=== PATIENT | male | born 1955 | race Caucasian/White ===

== ENCOUNTER 2024-06-17 12:37 | Inpatient (IN) | payer BC, OTHER ==
[2024-06-17] MEDS ORDERED: NA CHLORIDE 0.9% 250 ML ONE (13:10)
[2024-06-17] MEDS ORDERED: METOPROLOL TAR 25 MG TAB ONE ×2 (13:10→14:12)
[2024-06-17] MEDS ORDERED: MAGNESIUM SULFATE 1 gm IVPB 1 GM/100 ML BAG IV ONE (13:10)
[2024-06-17 13:38] LABS: Absolute Lymphocytes (CBC) 1.3 K/uL (0.7-4.9); Absolute Monocytes 1.8 K/uL (0.1-1.3); Absolute Neutrophil 8.9 K/uL (1.8-8.0); Basophils % 0.4 % (0-1.3); Eosinophils % 0.3 % (0-4.4); Hematocrit 35.3 % (39.6-49.0); Hemoglobin 12.6 g/dL (13.6-17.9); Lymphocytes % 10.4 % (15.3-44.8); MCH 30.1 pg (27.0-35.0); MCHC 35.6 g/dL (32.0-36.0); MCV 84.6 fL (80-100); MPV 8.3 fL (7.6-11.3); Monocytes % 15.3 % (3.3-12.3); Neutrophils % 73.6 % (41.7-73.7); Nucleated Red Blood Cells % 0.1 % (0-0); Platelets 345 thou/uL (152-406); RBC Red Blood Cell Count 4.17 M/uL (4.33-5.43); Red Cell Distribution Width 12.9 % (12.1-15.2)
--- NOTE | 2024-06-17 13:46 | RAD REPORT ---
EXAM: Chest Single View HISTORY: 69 years Male Dyspnea;Palpitations COMPARISON: None. FINDINGS: LUNGS/PLEURA: The lungs are clear. No pleural effusions or pneumothorax. No pulmonary edema. CARDIAC/MEDIASTINUM: The cardiac silhouette is within normal limits. UPPER ABDOMEN: No significant abnormality. BONES: No acute abnormality. LINES/TUBES/OTHER: N/A IMPRESSION: No evidence of acute cardiopulmonary disease.
[2024-06-17 13:48] LABS: PT Prothrombin Time 13.3 SECONDS (10.0-13.0); PTT, Activated Partial Thromb 26.9 SECONDS (24.3-36.9); Protime INR 1.18
[2024-06-17] MEDS ORDERED: Levofloxacin500mg IV 500 MG/100 ML BAG IV ONE (13:54)
[2024-06-17 14:03] LABS: Albumin 2.7 g/dL (3.4-5.0); Albumin/Globulin Ratio 0.7 (1.1-1.8); Anion Gap 10.6 mEq/L (5.0-15.0); Bilirubin Total 0.8 mg/dL (0.2-1.0); Globulin 4.1 g/dL (2.3-3.5); Potassium 3.6 mEq/L (3.5-5.1); Protein, Total 6.8 g/dL (6.4-8.2); Troponin High Sensitivity 8.2 pg/mL (<58.9)
--- NOTE | 2024-06-17 15:07 | ER ---
Nurse's Notes [facility] Name: Darin Parham Age: 69 yrs Sex: Male : 1955 Arrival Date: 06/17/2024 Time: 12:37 Bed 16 Private MD: Diagnosis: Persistent atrial fibrillation;Pneumonia, unspecified organism Presentation: 06/17 12:46 Chief complaint: Patient states: he has been having cough, congestion, fevers, chills ap3 and loss of apatite, and fatigue for approx a week. patient states he was sent over from next level urgent care due to these symptoms. Coronavirus screen: Client presents with at least one sign or symptom that may indicate coronavirus-19. Ebola Screen: No symptoms or risks identified at this time. Initial Sepsis Screen: Does the patient meet any 2 criteria? No. Patient's initial sepsis screen is negative. Does the patient have a suspected source of infection? No. Patient's initial sepsis screen is negative. Risk Assessment: Do you want to hurt yourself or someone else? Patient reports no desire to harm self or others. Onset of symptoms is unknown. 12:46 Method Of Arrival: Ambulatory ap3 12:46 Acuity: ROMANA 2 ap3 Triage Assessment: 12:49 Cardiovascular: Pulses this nurse palpates irregular pulse in right radius. ap3 13:00 General: Appears ill, Behavior is cooperative, appropriate for age. Pain: Denies pain. ap3 Neuro: Level of Consciousness is awake, alert, obeys commands, Oriented to person, place, time, situation, Appropriate for age. Respiratory: Reports shortness of breath on exertion cough that is Airway is patent Respiratory effort is even, unlabored. Historical: - Allergies: 13:32 PENICILLINS; cm10 - PMHx: 14:00 Hypertensive disorder; cm10 - Immunization history:: Adult Immunizations unknown. - Infectious Disease History:: Denies. - Family history:: not pertinent. - Social history:: Smoking status: unknown. - Hospitalizations: : No recent hospitalization is reported. Screenin:00 [facility] ED Fall Risk Assessment (Adult) History of falling in the last 3 months, cm10 including since admission No falls in past 3 months (0 pts) Confusion or Disorientation No (0 pts) Intoxicated or Sedated No (0 pts) Impaired Gait No (0 pts) Mobility Assist Device Used No (0 pt) Altered Elimination No (0 pt) Score/Fall Risk Level 0 - 2 = Low Risk Oriented to surroundings, Maintained a safe environment, Hourly rounding (assess needs \T\ fall precautionary measures) done. Abuse screen: Denies threats or abuse. Denies injuries from another. Nutritional screening: No deficits noted. Tuberculosis screening: No symptoms or risk factors identified. Assessment: 13:30 Reassessment: Patient appears in no apparent distress at this time. Patient and/or cm10 family updated on plan of care and expected duration. Pain level reassessed. Patient is alert, oriented x 3, equal unlabored respirations, skin warm/dry/pink. 14:30 Reassessment: Patient appears in no apparent distress at this time. Patient and/or cm10 family updated on plan of care and expected duration. Pain level reassessed. Patient is alert, oriented x 3, equal unlabored respirations, skin warm/dry/pink. 15:30 Reassessment: Patient appears in no apparent distress at this time. Patient and/or cm10 family updated on plan of care and expected duration. Pain level reassessed. Patient is alert, oriented x 3, equal unlabored respirations, skin warm/dry/pink. 16:30 Pain: Pain does not radiate. Pain began suddenly. cm10 Vital Signs: 12:46 BP 141 / 91; Pulse 67; Resp 19; Temp 98.3; Pulse Ox 100% ; Weight 117.03 kg; ap3 13:30 BP 120 / 73; Pulse 117; Resp 24; Pulse Ox 97% ; cm10 14:30 BP 102 / 77; Pulse 110; Resp 26; Pulse Ox 96% on R/A; cm10 15:00 BP 121 / 77; Pulse 100; Resp 25; Pulse Ox 97% on R/A; cm10 15:30 BP 117 / 91; Pulse 113; Resp 22; Pulse Ox 95% on R/A; cm10 16:00 BP 105 / 66; Pulse 112; Resp 19; Pulse Ox 96% on R/A; cm10 16:30 BP 101 / 68; Pulse 107; Resp 21; Pulse Ox 95% on R/A; cm10 17:00 BP 103 / 72; Pulse 108; Resp 21; Pulse Ox 95% on R/A; cm10 ED Course: 12:42 Patient arrived in ED. cj3 12:49 Triage completed. ap3 12:51 Federico Clemente MD is Attending Physician. rn 12:56 Loulou Pickard, JUVENTINO is Primary Nurse. cm10 12:59 EKG done, by ED staff, reviewed by Federico Clemente MD. ap3 13:02 Client placed on continuous cardiac and pulse oximetry monitoring. NIBP monitoring ap3 applied. conductor freight on. Pulse ox on. NIBP on. 13:20 Inserted saline lock: 18 gauge in right forearm, using aseptic technique. Blood cm10 collected. Flushed with 10 mL NS. 13:20 Initial lab(s) drawn, by me, sent to lab. First set of blood cultures drawn by me. cm10 13:25 Chest Single View XRAY In Process Unspecified. EDMS 13:30 Patient maintains SpO2 saturation greater than 95% on room air. cm10 13:30 Patient has correct armband on for positive identification. Bed in low position. Call cm10 light in reach. Side rails up X2. Provided Education on: ER process and procedures.. 13:30 Patient placed in an exam room, on a stretcher, on vamp marker, on pulse oximetry. cm10 14:07 Second set of blood cultures drawn by me. Inserted saline lock: 20 gauge in left cm10 forearm, using aseptic technique. Blood collected. Flushed with 10 mL NS. 15:07 Pricilla Felix MD is Hospitalizing Provider. rn 16:30 Patient admitted, IV remains in place. cm10 16:30 No provider procedures requiring assistance completed. cm10 Administered Medications: 13:29 Drug: Magnesium Sulfate IVPB 1 grams IVPB once over 1 hrs Route: IVPB; Infused Over: 1 cm10 hrs; Site: right forearm; 14:30 Follow up: Response: No adverse reaction; IV Status: Completed infusion; IV Intake: cm10 100ml 13:29 Drug: NS 0.9% IV 250 ml IV at bolus once; to be given as a bolus over 30 minutes Route: cm10 IV; Rate: bolus; Site: right forearm; 14:01 Follow up: Response: No adverse reaction; IV Status: Completed infusion; IV Intake: cm10 250ml 13:31 Drug: Metoprolol PO 25 mg PO once Route: PO; cm10 14:01 Follow up: Response: No adverse reaction cm10 14:16 Drug: levofloxacin IVPB 750 mg 150 ml IVPB once over 90 mins Volume: 150 ml; Route: cm10 IVPB; Infused Over: 90 mins; Site: left forearm; 15:16 Follow up: Response: No adverse reaction; IV Status: Completed infusion; IV Intake: cm10 100ml 14:16 Drug: Metoprolol PO 25 mg PO once Route: PO; cm10 14:46 Follow up: Response: No adverse reaction cm10 15:47 Drug: Enoxaparin Sub-Q 1 mg/kg Sub-Q once Route: Sub-Q; Site: abdomen; cm10 16:47 Follow up: Response: No adverse reaction cm10 Medication: 20:21 VIS not applicable for this client. cm10 Intake: 14:01 IV: 250ml; Total: 250ml. cm10 14:30 IV: 100ml; Total: 350ml. cm10 15:16 IV: 100ml; Total: 450ml. cm10 Outcome: 15:07 Decision to Hospitalize by Provider. rn 16:30 Admitted to ER Hold. Please see [facility] for further documentation. cm10 16:30 Condition: good 16:30 Instructed on the need for admit, 06/18 15:17 Patient left the ED. iw Signatures: Dispatcher [employer] Keerthi Tucker RN RN iw Nieto, Roman, MD MD rn Prokisch, Amanda, RN RN ap3 Loulou Pickard RN RN cm10 Johnson, Celeste 3
--- NOTE | 2024-06-17 15:07 | EDPHYS ---
Physician Documentation [facility] Name: Darin Parham Age: 69 yrs Sex: Male : 1955 Arrival Date: 06/17/2024 Time: 12:37 Bed 16 Private MD: ED Physician Federico Clemente HPI: 06/17 13:23 This 69 yrs old Male presents to ER via Ambulatory with complaints of Chest Pain, Flu rn Symptoms. 13:23 The patient or guardian reports cough, flu symptoms. Onset: The symptoms/episode rn began/occurred 1 week(s) ago. Associated signs and symptoms: Pertinent positives: fever, rhinorrhea. The patient has not experienced similar symptoms in the past. Patient reports sick for 1 week with fever, chills, nasal congestion. Reports cough with shortness of breath. Today started to feel palpitations and heart racing so sent here from urgent care. Urgent care obtained x-ray that showed possible bibasilar atypical pneumonia.. Historical: - Allergies: 13:32 PENICILLINS; cm10 - PMHx: 14:00 Hypertensive disorder; cm10 - Immunization history:: Adult Immunizations unknown. - Infectious Disease History:: Denies. - Family history:: not pertinent. - Social history:: Smoking status: unknown. - Hospitalizations: : No recent hospitalization is reported. ROS: 13:23 Constitutional: Positive for fever ENT: Positive for congestion Cardiovascular: rn Positive for heart racing and palpitations Respiratory: Positive for cough and shortness of breath Abdomen/GI: Negative for abdominal pain, nausea, vomiting, diarrhea, and constipation, MS/Extremity: Negative for injury and deformity, Skin: Negative for injury, rash, and discoloration, Neuro: Positive for headache and generalized weakness with malaise Exam: 13:23 Constitutional: This is a well developed, well nourished patient who is awake, alert, rn and in no acute distress. Head/Face: Normocephalic, atraumatic. ENT: Dry mucous membranes Cardiovascular: Tachycardic, irregular Respiratory: Mild tachypnea, diminished breath sounds at bases Abdomen/GI: Soft, non-tender MS/ Extremity: Pulses equal, no cyanosis. Neurovascular intact. Full, normal range of motion. Equal circumference. Neuro: Awake and alert, GCS 15 13:44 ECG was reviewed by the Attending Physician. rn Vital Signs: 12:46 BP 141 / 91; Pulse 67; Resp 19; Temp 98.3; Pulse Ox 100% ; Weight 117.03 kg; ap3 13:30 BP 120 / 73; Pulse 117; Resp 24; Pulse Ox 97% ; cm10 14:30 BP 102 / 77; Pulse 110; Resp 26; Pulse Ox 96% on R/A; cm10 15:00 BP 121 / 77; Pulse 100; Resp 25; Pulse Ox 97% on R/A; cm10 15:30 BP 117 / 91; Pulse 113; Resp 22; Pulse Ox 95% on R/A; cm10 16:00 BP 105 / 66; Pulse 112; Resp 19; Pulse Ox 96% on R/A; cm10 16:30 BP 101 / 68; Pulse 107; Resp 21; Pulse Ox 95% on R/A; cm10 17:00 BP 103 / 72; Pulse 108; Resp 21; Pulse Ox 95% on R/A; cm10 MDM: 12:51 Medical Screening Exam initiated rn 15:06 Differential Diagnosis: Bronchitis Influenza Upper Respiratory Infection Viral Syndrome rn Pneumonia. Data reviewed: vital signs, nurses notes, lab test result(s), EKG, radiologic studies, plain films, and as a result, I will admit patient. Consideration of Admission/Observation Patient was admitted/placed on observation. Escalation of care including admission/observation considered. Counseling: I had a detailed discussion with the patient and/or guardian regarding the historical points, exam findings, and any diagnostic results supporting the discharge/admit diagnosis, lab results, radiology results, the need for further work-up and treatment in the hospital. Response to treatment: the patient's symptoms have mildly improved after treatment, and as a result, I will admit patient. ED course: Chest x-ray images negative for pneumonia per my interpretation. Elevated BNP and new onset A-fib requiring rate control, Lovenox, IV magnesium and admission to the hospital.. 06/17 13:00 Order name: Blood Culture Adult (2) rn 06/17 13:00 Order name: CBC with Diff; Complete Time: 13:43 rn 06/17 13:00 Order name: CMP; Complete Time: 14:08 rn 06/17 13:00 Order name: Lactate w/ 2H reflex if indic.; Complete Time: 14:05 rn 06/17 13:00 Order name: Protime (+inr); Complete Time: 13:58 rn 06/17 13:00 Order name: Ptt, Activated; Complete Time: 13:58 rn 06/17 13:00 Order name: BNP; Complete Time: 14:08 rn 06/17 13:00 Order name: Troponin High Sensitivity; Complete Time: 14:08 rn 06/17 16:31 Order name: Basic Metabolic Panel EDMS 06/17 16:32 Order name: Basic Metabolic Panel EDMS 06/17 16:32 Order name: Basic Metabolic Panel EDMS 06/17 16:32 Order name: Basic Metabolic Panel EDMS 06/17 16:32 Order name: Basic Metabolic Panel EDMS 06/17 16:32 Order name: Basic Metabolic Panel EDMS 06/17 16:32 Order name: Basic Metabolic Panel EDMS 06/17 16:32 Order name: Basic Metabolic Panel EDMS 06/17 16:34 Order name: Cortisol EDMS 06/17 16:34 Order name: Osmolality, Serum EDMS 06/17 16:34 Order name: Osmolality, Urine EDMS 06/17 16:34 Order name: UR SODIUM EDMS 06/17 16:45 Order name: Thyroid Stimulating Hormone EDMS 06/17 16:45 Order name: Urinalysis w/ reflexes EDMS 06/17 16:49 Order name: CBC with Automated Diff EDMS 06/17 16:49 Order name: CBC with Automated Diff EDMS 06/17 16:49 Order name: CBC with Automated Diff EDMS 06/18 05:15 Order name: Osmolality, Serum EDMS 06/18 08:17 Order name: Magnesium EDMS 06/17 13:00 Order name: Chest Single View XRAY; Complete Time: 13:58 rn 06/17 16:45 Order name: Echo with Doppler EDMS 06/17 13:00 Order name: Cardiac monitoring; Complete Time: 13:29 rn 06/17 13:00 Order name: EKG - Nurse/Tech; Complete Time: 13:29 rn 06/17 13:00 Order name: IV Saline Lock - Large Bore; Complete Time: 13:29 rn 06/17 13:00 Order name: Labs collected and sent; Complete Time: 13:29 rn 06/17 13:00 Order name: O2 Per Protocol; Complete Time: 13:29 rn 06/17 13:00 Order name: O2 Sat Monitoring; Complete Time: 13:29 rn 06/17 13:00 Order name: Vital Signs; Complete Time: rn EC: Rate is 119 beats/min. Rhythm is irregularly irregular. QRS interval is normal. No Q rn waves. T waves are Normal. No ST changes noted. Clinical impression: Atrial Fibrillation. Interpreted by me. Reviewed by me. Administered Medications: 13: Drug: Magnesium Sulfate IVPB 1 grams IVPB once over 1 hrs Route: IVPB; Infused Over: 1 cm10 hrs; Site: right forearm; 14:30 Follow up: Response: No adverse reaction; IV Status: Completed infusion; IV Intake: cm10 100ml 13:29 Drug: NS 0.9% IV 250 ml IV at bolus once; to be given as a bolus over 30 minutes Route: cm10 IV; Rate: bolus; Site: right forearm; 14:01 Follow up: Response: No adverse reaction; IV Status: Completed infusion; IV Intake: cm10 250ml 13:31 Drug: Metoprolol PO 25 mg PO once Route: PO; cm10 14:01 Follow up: Response: No adverse reaction cm10 14:16 Drug: levofloxacin IVPB 750 mg 150 ml IVPB once over 90 mins Volume: 150 ml; Route: cm10 IVPB; Infused Over: 90 mins; Site: left forearm; 15:16 Follow up: Response: No adverse reaction; IV Status: Completed infusion; IV Intake: cm10 100ml 14:16 Drug: Metoprolol PO 25 mg PO once Route: PO; cm10 14:46 Follow up: Response: No adverse reaction cm10 15:47 Drug: Enoxaparin Sub-Q 1 mg/kg Sub-Q once Route: Sub-Q; Site: abdomen; cm10 16:47 Follow up: Response: No adverse reaction cm10 Disposition Summary: 06/17/24 15:07 Hospitalization Ordered Notes: Hospitalization Status: Inpatient Admission rn Provider: Pricilla Felix rn Condition: Stable rn Problem: new rn Symptoms: have improved rn Bed/Room Type: Standard rn Location: Telemetry/MedSurg (Inpatient)(06/18/24 13:43) eb Room Assignment: 223(06/18/24 13:43) eb Diagnosis - Persistent atrial fibrillation rn - Pneumonia, unspecified organism rn Forms: - Medication Reconciliation Form rn - SBAR form rn - Leadership Thank You Letter rn research time excluding procedures: 15:06 Critical care time: Bedside Care: 25 minutes, Consultation: 5 minutes, Family rn Intervention: 5 minutes. Total time: 35 minutes Signatures: Dispatcher [employer] EDMS Federico Clemente MD MD rn Botello, Elizabeth eb Villegas, Rebecca rv1 Loulou Pickard RN RN cm10 Corrections: (The following items were deleted from the chart) 13:01 13:00 BLOOD CULTURE*+BA.LAB.BRZ ordered. EDMS EDMS 13:01 13:00 CBC+H.LAB.BRZ ordered. EDMS EDMS 13:01 13:01 COMPREHENSIVE METABOLIC PANEL+C.LAB.BRZ ordered. EDMS EDMS 13:01 13:01 LACTATE+C.LAB.BRZ ordered. EDMS EDMS 13:01 13:01 PROTIME (+INR)+COAG.LAB.BRZ ordered. EDMS EDMS 13:01 13:01 PTT, ACTIVATED+COAG.LAB.BRZ ordered. EDMS EDMS 13:01 13:01 PROBNP+C.LAB.BRZ ordered. EDMS EDMS 13:01 13:01 Troponin High Sensitivity+C.LAB.BRZ ordered. EDMS EDMS 13:01 13:01 Chest Single View+RAD.RAD.BRZ ordered. EDMS EDMS 16:46 16:34 Thyroid Stimulating Hormone ordered. EDMS EDMS 16:49 16:49 Basic Metabolic Panel ordered. EDMS EDMS 16:49 16:49 Basic Metabolic Panel ordered. EDMS EDMS 19:18 15:07 Telemetry/MedSurg (Inpatient) rn [facility] 19:18 15:07 rn 1 06/18 13:43 06/17 19:18 BR ER HOLD [facility] 06/18 13:43 06/17 19:18 ERHOLD- [facility]
[2024-06-17] MEDS ORDERED: ENOXAPARIN 100 MG/ML SYR SQ ONE (15:46)
[2024-06-17] MEDS ORDERED: ACETAMINOPHEN 500 MG TAB PO PRN (16:39)
[2024-06-17] MEDS ORDERED: ZOLPIDEM TARTRATE 5 MG TABLET PO PRN (16:39)
[2024-06-17] MEDS ORDERED: ONDANSETRON 4 MG/2 ML VIAL IV PRN (16:39)
[2024-06-17] MEDS ORDERED: POLYETHYL GLY 3350 17 GM/DOSE PO PRN (16:50)
--- NOTE | 2024-06-17 17:03 | P.HP ---
Certification for Inpatient With expected LOS: >2 Midnights Patient will require the following post-hospital care: None Practitioner: I am a practitioner with admitting privileges, knowledge of patient current condition, hospital course, and medical plan of care. Services: Services provided to patient in accordance with Admission requirements found in Title 42 Section 412.3 of the Code of Federal Regulations Patient History Date of Service: 06/17/24 Reason for admission: Pneumonia, hyponatremia, atrial fibrillation History of Present Illness: 69-year-old patient presented with cough and fever for the last 2 to 3 days, he initially presented to the outside urgent care, as per the report, COVID and flu test were negative, he was found to have pneumonia and also atrial fibrillation so he was transferred here for further evaluation, he was given IV medications, his heart rate is controlled by the time of my visit, he was given a dose of Lovenox and Levaquin in the emergency room. he has constipation 1 week back but that is getting better now, he has chronic knee pain, other than this he denies any other acute complaints. No headache or blackouts. No double vision or blurry vision. No chest pain or shortness of breath. No nausea or vomiting. No abdominal pain. No constipation or diarrhea. No blood in the urine or stool. No lower extremity edema. No recent change in the weight. Review of systems: All other 10 point review of systems are negative other than as mentioned above. Allergies and medications: Reviewed, as per [facility] EMR. Past medical history: Hypertension Past surgical history: Tonsillectomy Social history: No smoking or drugs. Drinks couple of beers every day. Family history: No family history of [place] or CVA Physical examination: Vital signs: Reviewed, as per EMR. General appearance: Alert and comfortable HEENT: Extraocular movements intact, oral mucosa moist. CVS: Normal S1-S2 Lungs: Clear to auscultation bilaterally Abdomen: Soft, bowel sounds present, no tenderness Extremities: No lower extremity edema SOCCER REFEREE: Moves all 4 extremities, no obvious focal deficits, AAO x 3/3 Musculoskeletal: No obvious joint swelling or tenderness Home medications list reviewed: Yes - Past Medical/Surgical History Diabetic: No Physical Examination - Studies Laboratory Data (last 24 hrs) 06/17/24 06/17/24 06/17/24 13:20 13:20 13:20 WBC 12.00 H Hgb 12.6 L Hct 35.3 L Plt Count 345 PT 13.3 H INR 1.18 APTT 26.9 Sodium 119 L* Potassium 3.6 BUN 20 H Creatinine 0.84 Glucose 116 H Total Bilirubin 0.8 AST 38 H ALT 55 Alkaline Phosphatase 83 Assessment and Plan - Problems (Diagnosis) (1) Atrial fibrillation Current Visit: Yes Status: Acute - Plan Assessment and plan: 1. Atrial fibrillation with rapid ventricular rate: His heart rate is already improving, it was in the 70s to 80s at the time of my visit in the emergency room, he takes amlodipine at home for blood pressure, I will start him on long- acting Cardizem for now, monitor heart rate closely on tele monitor, I will check TSH, check echocardiogram, cardiology consult requested. He was given a dose of therapeutic Lovenox in the emergency room, further anticoagulation as per cardiology. 2. Pneumonia: Will treat as community-acquired pneumonia, he is allergic to penicillins, he was given a dose of Levaquin, will continue the same for now. 3. Hyponatremia: I think this is combination of alcohol and HCTZ, he was given a small fluid bolus in the emergency room because of hypotension, monitor sodium closely every 4 hours, hold HCTZ for now. Nephrology consult requested. 4. Hypertension: Stop Norvasc as we are starting Cardizem, stop ARB and HCTZ as well due to hyponatremia, monitor blood pressure closely, will increase Cardizem if needed. 5. Anemia: Probably chronic, monitor closely. DVT Prophylaxis: He was given a full dose of Lovenox in the emergency room, will decide about further anticoagulation tomorrow. Code Status: He would like to be full code. I did discuss all the above mentioned plan with the patient, he understands and agrees with the plan. I discussed with the emergency room staff. I discussed advanced directives with the patient, his [place] is the POA. Discharge Plan: Home Plan to discharge in: 48 Hours - Advance Directives Does patient have a Living Will: No Does patient have a Durable POA for Healthcare: Yes - Code Status/Comfort Care Code Status Assessed: Yes Code Status: Full Code
[2024-06-17] MEDS: DILTIAZEM HCL 180 MG SR CAP PO SCH (19:42)
[2024-06-17 20:03] VITALS: BMI 34.0
[2024-06-17 20:17] LABS: Anion Gap 10.5 mEq/L (5.0-15.0); Potassium 3.5 mEq/L (3.5-5.1)
[2024-06-18 04:42] LABS: Absolute Eosinophils 0.1 K/uL (0-0.5); Absolute Lymphocytes (CBC) 0.8 K/uL (0.7-4.9); Absolute Monocytes 1.5 K/uL (0.1-1.3); Basophils % 0.4 % (0-1.3); Eosinophils % 0.5 % (0-4.4); Hemoglobin 12.3 g/dL (13.6-17.9); MCH 29.9 pg (27.0-35.0); MCHC 35.1 g/dL (32.0-36.0); MCV 85.1 fL (80-100); MPV 8.4 fL (7.6-11.3); Monocytes % 13.3 % (3.3-12.3); Neutrophils % 78.8 % (41.7-73.7); Platelets 369 thou/uL (152-406); RBC Red Blood Cell Count 4.11 M/uL (4.33-5.43); Red Cell Distribution Width 13.1 % (12.1-15.2)
[2024-06-18 04:50] LABS: Anion Gap 9.4 mEq/L (5.0-15.0); Potassium 3.4 mEq/L (3.5-5.1)
[2024-06-18 06:45] LABS: Specific Gravity 1.007 (1.005-1.030); Urine Bilirubin NEGATIVE (Negative); Urine Blood Negative (Negative); Urine Clarity Clear (Clear); Urine Color Light-Yellow (Yellow); Urine Glucose NEGATIVE (Negative); Urine Ketones NEGATIVE (Negative); Urine Microscopic Reflex YN NO UMIC; Urine Nitrite NEGATIVE (Negative); Urine Protein NEGATIVE (Negative); Urine Urobilinogen Normal (Normal)
--- NOTE | 2024-06-18 07:42 | P.CNS ---
Date of Consult: 06/18/24 Reason for Consult: Hyponatremia Requesting Physician: Glenroy Johnson Chief Complaint: Pneumonia, hyponatremia, atrial fibrillation History of Present Illness: 69-year-old patient presented with cough and fever for the last 2 to 3 days, he initially presented to the outside urgent care, as per the report, COVID and flu test were negative, he was found to have pneumonia and also atrial fibrillation so he was transferred here for further evaluation, he was given IV medications, his heart rate is controlled by the time of my visit, he was given a dose of Lovenox and Levaquin in the emergency room. he has constipation 1 week back but that is getting better now, he has chronic knee pain, other than this he denies any other acute complaints. No headache or blackouts. No double vision or blurry vision. No chest pain or shortness of breath. No nausea or vomiting. No abdominal pain. No constipation or diarrhea. No blood in the urine or stool. No lower extremity edema. No recent change in the weight. 13:23 This 69 yrs old Male presents to ER via Ambulatory with complaints of Chest Pain, Flu rn Symptoms. 13:23 The patient or guardian reports cough, flu symptoms. Onset: The symptoms/episode rn began/occurred 1 week(s) ago. Associated signs and symptoms: Pertinent positives: fever, rhinorrhea. The patient has not experienced similar symptoms in the past. Patient reports sick for 1 week with fever, chills, nasal congestion. Reports cough with shortness of breath. Today started to feel palpitations and heart racing so sent here from urgent care. Urgent care obtained x-ray that showed possible bibas ilar atypical pneumonia. Reports 6-8 beers per day but has not been drinking since he started feeling ill 7-10 days ago. He is here on vacation. No difficulty with urination. Allergies Penicillins Allergy (Verified 06/17/24 19:11) Hives/Rash Home medications list reviewed: Yes Home Medications: Amlodipine [Norvasc] 10 mg PO DAILY 06/17/24 Irbesartan/Hydrochlorothiazide [Avalide 150-12.5 mg Tablet] 1 each PO BID 06/17/24 - Past Medical/Surgical History Diabetic: No -: HTN -: Afib Review of Systems 10-point ROS is otherwise unremarkable General: Weakness, Malaise Cardiovascular: Edema Physical Examination Temp Pulse Resp BP Pulse Ox 97.9 F 111 H 20 121/93 H 96 06/18/24 04:00 06/18/24 04:00 06/18/24 04:00 06/18/24 04:00 06/18/24 04:00 General: In no apparent distress, Oriented x3, Cooperative Neck: Supple Respiratory: Clear to auscultation bilaterally Cardiovascular: Edema, Irregular heart rate/rhythm Gastrointestinal: Soft and benign, Non-distended Musculoskeletal: No clubbing, No contractures Integumentary: No rashes Neurological: Normal speech Laboratory Data (last 24 hrs) 06/17/24 06/17/24 06/17/24 16:29 13:20 13:20 WBC Hgb Hct Plt Count PT 13.3 H INR 1.18 APTT 26.9 Sodium Cancelled 119 L* Potassium Cancelled 3.6 BUN Cancelled 20 H Creatinine Cancelled 0.84 Glucose Cancelled 116 H Total Bilirubin 0.8 AST 38 H ALT 55 Alkaline Phosphatase 83 06/17/24 13:20 WBC 12.00 H Hgb 12.6 L Hct 35.3 L Plt Count 345 PT INR APTT Sodium Potassium BUN Creatinine Glucose Total Bilirubin AST ALT Alkaline Phosphatase Imagings Data: EXAM: Chest Single View HISTORY: 69 years Male Dyspnea;Palpitations COMPARISON: None. FINDINGS: LUNGS/PLEURA: The lungs are clear. No pleural effusions or pneumothorax. No pulmonary edema. CARDIAC/MEDIASTINUM: The cardiac silhouette is within normal limits. UPPER ABDOMEN: No significant abnormality. BONES: No acute abnormality. LINES/TUBES/OTHER: N/A IMPRESSION: No evidence of acute cardiopulmonary disease. Conclusions/Impression: Hyponatremia in the setting of HCTZ -Hold HCTZ -Encourage nutrition -Start Bumex -Sodium tablet X1 -BMP q4h Hypokalemia -Replete as ordered HTN -Hold antihypertensives at this time LE Edema -Start Bumex 0.5mg daily Hypoalbuminemia -Encourage nutrition/ protein supplementation Anemia in chronic illness -Monitor H&H Case reviewed with Dr. Johnson Thank you kindly for the consultation
[2024-06-18 08:04] LABS: Anion Gap 9.7 mEq/L (5.0-15.0); Potassium 3.7 mEq/L (3.5-5.1)
[2024-06-18] MEDS ORDERED: levoFLOXacin 750 MG TAB ONE (08:21)
[2024-06-18] MEDS ORDERED: DILTIAZEM HCL 60 MG TAB ONE (08:22)
[2024-06-18] MEDS: levoFLOXacin 750 MG TAB PO SCH (08:31)
[2024-06-18] MEDS: FOLIC ACID 1 MG TABLET PO SCH (09:00)
[2024-06-18] MEDS: BUMETANIDE 1 MG TABLET PO SCH (09:00)
[2024-06-18] MEDS: THIAMINE HCL 100 MG TABLET PO SCH (09:00)
[2024-06-18] MEDS ORDERED: POTASSIUM CL SA 10 MEQ TAB PO ONE (10:19)
[2024-06-18] MEDS ORDERED: THIAMINE HCL 100 MG TABLET ONE (10:19)
[2024-06-18] MEDS ORDERED: FOLIC ACID 1 MG TABLET ONE (10:19)
--- NOTE | 2024-06-18 10:49 | P.PN ---
Subjective Date of Service: 06/18/24 Chief Complaint: Pneumonia, hyponatremia, atrial fibrillation Subjective: No chest pain. shortness of breath improving. No nausea or vomiting. No abdominal pain. No obvious bleeding. Looks comfortable in the bed. Objective: General appearance: Alert and comfortable CVS: Normal S1 and S2 Lungs: Clear to auscultation bilaterally Abdomen: Soft, bowel sounds present, no tenderness Extremities: No pedal edema Physical Examination - Vital Signs Temperature: 98.8 F Blood Pressure: 119/79 Pulse: 142 Respirations: 20 Pulse Ox (%): 96 - Studies Laboratory Data (last 24 hrs) 06/17/24 06/17/24 06/17/24 16:29 13:20 13:20 WBC Hgb Hct Plt Count PT 13.3 H INR 1.18 APTT 26.9 Sodium Cancelled 119 L* Potassium Cancelled 3.6 BUN Cancelled 20 H Creatinine Cancelled 0.84 Glucose Cancelled 116 H Total Bilirubin 0.8 AST 38 H ALT 55 Alkaline Phosphatase 83 06/17/24 13:20 WBC 12.00 H Hgb 12.6 L Hct 35.3 L Plt Count 345 PT INR APTT Sodium Potassium BUN Creatinine Glucose Total Bilirubin AST ALT Alkaline Phosphatase Assessment And Plan - Current Problems (Diagnosis) (1) Atrial fibrillation Current Visit: Yes Status: Acute - Plan Assessment and plan: 1. Atrial fibrillation with rapid ventricular rate: His heart rate still high, increase long-acting Cardizem for now, monitor heart rate closely on tele monitor, TSH normal - f/u echocardiogram -cardiology consult requested. -He was given a dose of therapeutic Lovenox in the emergency room, start eliquis for now, further anticoagulation as per cardiology. 2. Pneumonia: Will treat as community-acquired pneumonia, he is allergic to penicillins - continue Levaquin for now. 3. Hyponatremia: I think this is combination of alcohol and HCTZ - monitor sodium closely every 4 hours -hold HCTZ for now, sodium slowly improving -Nephrology consult requested. -Further management as per nephrology. 4. Hypertension -Continue Cardizem. -DC ARB and HCTZ 5. Anemia: Probably chronic, monitor closely. DVT Prophylaxis: eliquis Code Status: full code. I did discuss all the above mentioned plan with the patient, he understands and agrees with the plan. Probably home in the next 24 to 48 hours depending on the heart rate control and sodium levels. Discharge Plan: Home Plan to discharge in: 24 Hours
[2024-06-18] MEDS: POTASSIUM CL SA 10 MEQ TAB PO ONE ×2 (10:53→21:21)
[2024-06-18 11:59] LABS: Anion Gap 11.8 mEq/L (5.0-15.0); Potassium 3.8 mEq/L (3.5-5.1)
[2024-06-18] MEDS: DILTIAZEM HCL 180 MG SR CAP PO SCH (12:00)
[2024-06-18] MEDS ORDERED: APIXABAN 5 MG TABLET ONE (12:55)
[2024-06-18] MEDS: APIXABAN 5 MG TABLET PO SCH (13:00)
--- NOTE | 2024-06-18 13:01 | ECHO ---
HEIGHT: 6 ft 1 in WEIGHT: 258 lb 0 oz DATE OF STUDY: 06/18/[address]: Glenroy Johnson 2-DIMENSIONAL: YES M.MODE: YES DOPPLER: YES COLOR FLOW: YES TDS: PORTABLE: YES DEFINITY: BUBBLE STUDY: DIAGNOSIS: ATRIAL FIBRILLATION CARDIAC HISTORY: CATHERIZATION: SURGERY: PROSTHETIC VALVE: PACEMAKER: MEASUREMENTS (cm) DIASTOLIC (NORMALS) SYSTOLIC (NORMALS) IVSd 1.0 (0.6-1.2) LA Diam 5.3 (1.9-4.0) LVEF 60-65% LVIDd 5.6 (3.5-5.7) LVIDs 3.7 (2.0-3.5) %FS 34% LVPWd 1.1 (0.6-1.2) Ao Diam 3.1 (2.0-3.7) 2 DIMENSIONAL ASSESSMENT: RIGHT ATRIUM: NORMAL LEFT ATRIUM: MODERATELY DILATED RIGHT VENTRICLE: NORMAL LEFT VENTRICLE: NORMAL TRICUSPID VALVE: TRACE TRICUSPID REGURGITATION MITRAL VALVE: MILD MITRAL REGURGITATION PULMONIC VALVE: NORMAL AORTIC VALVE: NORMAL PERICARDIAL EFFUSION: NONE AORTIC ROOT: NORMAL LEFT VENTRICULAR WALL MOTION: NORMAL DOPPLER/COLOR FLOW: DIASTOLIC DYSFUNCTION COMMENTS: 1. MODERATELY DILATED LEFT ATRIUM 2. NORMAL LEFT VENTRICULAR SYSTOLIC FUNCTION, EJECTION FRACTION 60-65%, NORMAL WALL MOTION 3. DIASTOLIC DYSFUNCTION 4. ELEVATED FILLING PRESSURE (RIGHT ATRIAL PRESSURE 15-20 mmHg) TECHNOLOGIST: CRISTELA BALTAZAR
--- NOTE | 2024-06-18 13:33 | P.CNS ---
Date of Consult: 06/18/24 Chief Complaint: Pneumonia, hyponatremia, atrial fibrillation History of Present Illness: Patient with PMH of HTN, presented with SOB, Cough, generalized weakness for the last few days, denies chest pain, no palpitations, no syncope. Allergies Penicillins Allergy (Verified 06/17/24 19:11) Hives/Rash Home medications list reviewed: Yes Home Medications: Amlodipine [Norvasc] 10 mg PO DAILY 06/17/24 Irbesartan/Hydrochlorothiazide [Avalide 150-12.5 mg Tablet] 1 each PO BID 06/17/24 - Past Medical/Surgical History Diabetic: No -: HTN Review of Systems 10-point ROS is otherwise unremarkable Physical Examination Temp Pulse Resp BP Pulse Ox 98.8 F 100 H 20 124/98 H 96 06/18/24 11:06 06/18/24 12:00 06/18/24 11:06 06/18/24 12:00 06/18/24 11:06 General: Alert, In no apparent distress HEENT: Atraumatic, PERRLA, Mucous membr. moist/pink, EOMI, Sclerae nonicteric Neck: Supple, 2+ carotid pulse no bruit, No LAD, Without JVD or thyroid abnormality Respiratory: Clear to auscultation bilaterally, Normal air movement Cardiovascular: Regular rate/rhythm, Normal S1 S2 Gastrointestinal: Normal bowel sounds, No tenderness Musculoskeletal: No tenderness Integumentary: No rashes Neurological: Normal gait, Normal speech, Normal tone, Normal affect Lymphatics: No axilla or inguinal lymphadenopathy Laboratory Data (last 24 hrs) 06/17/24 06/17/24 06/17/24 16:29 13:20 13:20 WBC Hgb Hct Plt Count PT 13.3 H INR 1.18 APTT 26.9 Sodium Cancelled 119 L* Potassium Cancelled 3.6 BUN Cancelled 20 H Creatinine Cancelled 0.84 Glucose Cancelled 116 H Total Bilirubin 0.8 AST 38 H ALT 55 Alkaline Phosphatase 83 06/17/24 13:20 WBC 12.00 H Hgb 12.6 L Hct 35.3 L Plt Count 345 PT INR APTT Sodium Potassium BUN Creatinine Glucose Total Bilirubin AST ALT Alkaline Phosphatase - Problems (1) Diastolic heart failure Current Visit: Yes Status: Acute Plan: stop Diltazem switch to lopressor 50 mg po BID add Losartan 25 mg daily patient echo shows elevated filling pressure, so recommend lasix 40 mg IV X1 patient really want to go home tomorrow. Outpatient follow up with cardiology. (2) HTN (hypertension) Current Visit: Yes Status: Acute Plan: as above. (3) Atrial fibrillation Current Visit: Yes Status: Acute Plan: echo shows moderate dilated LA, so not sure if this new onset or not, stop diltazem and start BB as above as patient have diastolic dysfunction. agree with Eliquis 5 mg po BID Outpatient follow up with cardiology.
[2024-06-18 16:11] LABS: Anion Gap 10.6 mEq/L (5.0-15.0); Potassium 3.6 mEq/L (3.5-5.1)
[2024-06-18] MEDS: SODIUM CHLORIDE 1 GM TAB PO ONE (21:21)
[2024-06-19] MEDS: METOPROLOL TARTRATE 5 MG/5 ML INJ IV ONE (04:17)
[2024-06-19 04:45] LABS: Absolute Basophils 0.1 K/uL (0-0.5); Absolute Eosinophils 0.1 K/uL (0-0.5); Absolute Monocytes 1.3 K/uL (0.1-1.3); Absolute Neutrophil 6.4 K/uL (1.8-8.0); Basophils % 0.6 % (0-1.3); Eosinophils % 1.1 % (0-4.4); Hematocrit 35.3 % (39.6-49.0); Hemoglobin 12.4 g/dL (13.6-17.9); Lymphocytes % 11.1 % (15.3-44.8); MCH 30.2 pg (27.0-35.0); MCHC 35.2 g/dL (32.0-36.0); MCV 85.6 fL (80-100); MPV 8.2 fL (7.6-11.3); Monocytes % 14.7 % (3.3-12.3); Neutrophils % 72.5 % (41.7-73.7); Platelets 395 thou/uL (152-406); RBC Red Blood Cell Count 4.12 M/uL (4.33-5.43); Red Cell Distribution Width 12.9 % (12.1-15.2)
[2024-06-19 04:55] LABS: Phosphorus 2.8 mg/dL (2.5-4.9); Uric Acid 5.7 mg/dL (3.5-7.2)
[2024-06-19] MEDS: METOPROLOL TAR 50 MG TAB PO SCH (08:30)
--- NOTE | 2024-06-19 11:42 | P.PN ---
Subjective Date of Service: 06/19/24 Chief Complaint: Pneumonia, hyponatremia, atrial fibrillation Subjective: No chest pain. shortness of breath improving. No nausea or vomiting. No abdominal pain. No obvious bleeding. Looks comfortable in the bed. Wants to go home Objective: General appearance: Alert and comfortable CVS: Normal S1 and S2 Lungs: Clear to auscultation bilaterally Abdomen: Soft, bowel sounds present, no tenderness Extremities: No pedal edema Physical Examination - Vital Signs Temperature: 97.9 F Blood Pressure: 113/66 Pulse: 100 Respirations: 16 Pulse Ox (%): 98 - Studies Laboratory Results :20 Hct Assessment And Plan - Current Problems (Diagnosis) (1) Atrial fibrillation Current Visit: Yes Status: Acute - Plan Assessment and plan: 1. Atrial fibrillation with rapid ventricular rate: His heart rate still high, change Cardizem to lopressor per cardiology - monitor heart rate closely on tele monitor, TSH normal - f/u echocardiogram -cardiology consult requested, appreciate recs. -continue eliquis as per cardiology. 2. Pneumonia: treat as community-acquired pneumonia, he is allergic to penicillins - continue Levaquin for now. 3. Hyponatremia: I think this is combination of alcohol and HCTZ - monitor sodium closely every 4 hours -hold HCTZ for now, sodium slowly improving -Nephrology consult requested. -Further management as per nephrology. 4. Hypertension -Continue BB -DC ARB and HCTZ 5. Anemia: Probably chronic, monitor closely. DVT Prophylaxis: eliquis Code Status: full code. I did discuss all the above mentioned plan with the patient, he understands and agrees with the plan. d/w family at bedside
[2024-06-19 11:52] LABS: Anion Gap 8.7 mEq/L (5.0-15.0); Potassium 3.7 mEq/L (3.5-5.1)
--- NOTE | 2024-06-19 18:25 | P.PN ---
Date of Service: 06/19/24 Vital Signs Temp Pulse Resp BP Pulse Ox 97.4 F 88 18 128/81 98 06/19/24 16:00 06/19/24 16:00 06/19/24 16:00 06/19/24 16:00 06/19/24 16:00 Medications Acetaminophen (Acetaminophen 500 Mg Tab) 500 mg PO Q4HP PRN PRN Reason: Pain scale 2-4 (Mild) Apixaban (Apixaban 5 Mg Tablet) 5 mg PO BID [facility] Last Admin: 06/19/24 08:30 Dose: 5 mg Bumetanide (Bumetanide 1 Mg Tablet) 0.5 mg PO DAILY [facility] Last Admin: 06/19/24 08:30 Dose: 0.5 mg Folic Acid (Folic Acid 1 Mg Tablet) 1 mg PO DAILY [facility] Last Admin: 06/19/24 08:31 Dose: 1 mg Levofloxacin (Levofloxacin 750 Mg Tab) 750 mg PO DAILY [facility]; Protocol Stop: 06/21/24 23:59 Last Admin: 06/19/24 08:30 Dose: 750 mg Metoprolol Tartrate (Metoprolol Tar 50 Mg Tab) 50 mg PO BID [facility] Last Admin: 06/19/24 16:53 Dose: 50 mg Ondansetron HCl (Ondansetron 4 Mg/2 Ml Vial) 4 mg IV Q6HP PRN PRN Reason: NAUSEA / VOMITING Polyethylene Glycol (Polyethyl Gly 3350 17 Gm/Dose) 17 gm PO DAILY PRN PRN Reason: CONSTIPATION Thiamine HCl (Thiamine Hcl 100 Mg Tablet) 100 mg PO DAILY [facility] Last Admin: 06/19/24 08:31 Dose: 100 mg Zolpidem Tartrate (Zolpidem Tartrate 5 Mg Tablet) 5 mg PO BEDTIME PRN PRN PRN Reason: INSOMNIA Microbiology Results 06/17/24 14:07 Blood - Blood Aerobic Blood Culture - Preliminary No growth in 24 hours. 06/17/24 14:07 Blood - Blood Anaerobic Blood Culture - Preliminary No growth in 24 hours. 06/17/24 13:20 Blood - Blood Aerobic Blood Culture - Preliminary No growth in 24 hours. 06/17/24 13:20 Blood - Blood Anaerobic Blood Culture - Preliminary No growth in 24 hours. Assessment/ Plan: Nephrology No dyspnea No chest pain Reports loose stool No acute events overnight Vitals, medications, blood work and imaging reviewed in the chart General: In no apparent distress, Oriented x3, Cooperative Neck: Supple Respiratory: Clear to auscultation bilaterally Cardiovascular: Edema, Irregular heart rate/rhythm Gastrointestinal: Soft and benign, Non-distended Musculoskeletal: No clubbing, No contractures Integumentary: No rashes Neurological: Normal speech Laboratory Data (last 24 hrs) 06/17/24 06/17/24 06/17/24 16:29 13:20 13:20 WBC Hgb Hct Plt Count PT 13.3 H INR 1.18 APTT 26.9 Sodium Cancelled 119 L* Potassium Cancelled 3.6 BUN Cancelled 20 H Creatinine Cancelled 0.84 Glucose Cancelled 116 H Total Bilirubin 0.8 AST 38 H ALT 55 Alkaline Phosphatase 83 06/17/24 13:20 WBC 12.00 H Hgb 12.6 L Hct 35.3 L Plt Count 345 PT INR APTT Sodium Potassium BUN Creatinine Glucose Total Bilirubin AST ALT Alkaline Phosphatase Imagings Data: EXAM: Chest Single View HISTORY: 69 years Male Dyspnea;Palpitations COMPARISON: None. FINDINGS: LUNGS/PLEURA: The lungs are clear. No pleural effusions or pneumothorax. No pulmonary edema. CARDIAC/MEDIASTINUM: The cardiac silhouette is within normal limits. UPPER ABDOMEN: No significant abnormality. BONES: No acute abnormality. LINES/TUBES/OTHER: N/A IMPRESSION: No evidence of acute cardiopulmonary disease. Conclusions/Impression: Hyponatremia in the setting of HCTZ -Hold HCTZ -Encourage nutrition -Continue Bumex -Sodium tablet X2 Hypokalemia -Replete as ordered HTN -Continue Metoprolol LE Edema -Continue Bumex 0.5mg daily Hypoalbuminemia -Encourage nutrition/ protein supplementation Anemia in chronic illness -Monitor H&H Case reviewed with Dr. Johnson
[2024-06-19 19:19] LABS: C.diff Antigen/Toxin Ag neg : Tox neg (NEG : NEG); CDIFF INTERNAL NEG CONTROL White Background (WHITE BKGD); STOOL CONSISTENCY Formed/Solid (soft)
[2024-06-19] MEDS: SODIUM CHLORIDE 1 GM TAB PO SCH (20:24)
[2024-06-19] MEDS: POTASSIUM CL SA 10 MEQ TAB PO ONE (20:24)
[2024-06-20] MEDS: METOPROLOL TARTRATE 5 MG/5 ML INJ IV STA (00:55)
[2024-06-20] MEDS: DIPHENOX/ATROP SULF 1 TAB PO ONE (01:21)
[2024-06-20 06:35] LABS: Absolute Basophils 0.1 K/uL (0-0.5); Absolute Eosinophils 0.1 K/uL (0-0.5); Absolute Lymphocytes (CBC) 1.3 K/uL (0.7-4.9); Absolute Monocytes 1.2 K/uL (0.1-1.3); Absolute Neutrophil 3.9 K/uL (1.8-8.0); Eosinophils % 2.1 % (0-4.4); Hemoglobin 12.9 g/dL (13.6-17.9); Lymphocytes % 19.3 % (15.3-44.8); MCH 30.6 pg (27.0-35.0); MCHC 34.7 g/dL (32.0-36.0); MCV 88.2 fL (80-100); MPV 7.3 fL (7.6-11.3); Monocytes % 18.2 % (3.3-12.3); Neutrophils % 59.4 % (41.7-73.7); Nucleated Red Blood Cells % 0.1 % (0-0); Platelets 479 thou/uL (152-406)
[2024-06-20] MEDS: METOPROLOL TAR 50 MG TAB PO SCH (08:16)
--- NOTE | 2024-06-20 09:32 | P.PN ---
Subjective Date of Service: 06/20/24 Chief Complaint: Pneumonia, hyponatremia, atrial fibrillation Subjective: No new changes, No C/O voiced, Tolerating diet, Ambulating, Improving Review of Systems 10-point ROS is otherwise unremarkable Physical Examination - Vital Signs Temperature: 97.6 F Blood Pressure: 121/77 Pulse: 125 Respirations: 16 Pulse Ox (%): 98 - Physical Exam General: Alert, In no apparent distress HEENT: Atraumatic, PERRLA, EOMI Neck: Supple, JVD not distended Respiratory: Clear to auscultation bilaterally, Normal air movement Cardiovascular: Irregular heart rate/rhythm Gastrointestinal: Normal bowel sounds, No tenderness Musculoskeletal: No tenderness Integumentary: No rashes Neurological: Normal speech, Normal tone, Normal affect Lymphatics: No axilla or inguinal lymphadenopathy - Studies Medications List Reviewed: Yes Assessment And Plan - Current Problems (Diagnosis) (1) Diastolic heart failure Current Visit: Yes Status: Acute Plan: lopressor 50 mg po BID add Losartan 25 mg daily continue bumex 0.5 mg daily Outpatient follow up with cardiology. (2) HTN (hypertension) Current Visit: Yes Status: Acute Plan: as above. (3) Atrial fibrillation Current Visit: Yes Status: Acute Plan: echo shows moderate dilated LA, so not sure if this new onset or not, start patient on Sotalol 80 mg po BID (EKG after 3rd dose) continue lopressor 50 mg po TID agree with Eliquis 5 mg po BID NPO after midnight for KELLEN DCCV in am Outpatient follow up with cardiology.
[2024-06-20] MEDS: SOTALOL HCL 80 MG TAB PO SCH (09:37)
[2024-06-20] MEDS: LOPERAMIDE HCL 2 MG CAPSULE PO PRN (09:44)
[2024-06-20 11:19] LABS: Anion Gap 9.7 mEq/L (5.0-15.0); Potassium 3.7 mEq/L (3.5-5.1)
--- NOTE | 2024-06-20 13:26 | P.PN ---
Subjective Date of Service: 06/20/24 Chief Complaint: Pneumonia, hyponatremia, atrial fibrillation Subjective: No chest pain. shortness of breath improving. No nausea or vomiting. No abdominal pain. No obvious bleeding. Looks comfortable in the bed. Had some diarrhea yesterday but better today. Objective: General appearance: Alert and comfortable CVS: Normal S1 and S2 Lungs: Clear to auscultation bilaterally Abdomen: Soft, bowel sounds present, no tenderness Extremities: No pedal edema Physical Examination - Vital Signs Temperature: 97.6 F Blood Pressure: 121/77 Pulse: 125 Respirations: 16 Pulse Ox (%): 98 - Studies Medications List Reviewed: Yes Assessment And Plan - Current Problems (Diagnosis) (1) Atrial fibrillation Current Visit: Yes Status: Acute - Plan Assessment and plan: 1. Atrial fibrillation with rapid ventricular rate: His heart rate still high, increase lopressor - monitor heart rate closely on tele monitor, TSH normal - echocardiogram normal EF, no significant valve issues -cardiology consult requested, appreciate recs. -continue eliquis as per cardiology. -cardiology started sotalol and plan for CV tomorrow 2. Pneumonia: treat as community-acquired pneumonia, he is allergic to penicillins - continue Levaquin for now. 3. Hyponatremia: I think this is combination of alcohol and HCTZ - monitor sodium closely -held HCTZ for now, sodium slowly improving -Nephrology consult requested, apprecaite recs, salt tabs as per renal -Further management as per nephrology. 4. Hypertension -Continue BB -DC ARB and HCTZ 5. Anemia: Probably chronic, monitor closely. 6. Diarrhea: prob ABX related, better, PRN imodium for now DVT Prophylaxis: eliquis Code Status: full code. I did discuss all the above mentioned plan with the patient, he understands and agrees with the plan. DC plan depends on clinical progress.
[2024-06-21 05:53] LABS: Absolute Basophils 0.1 K/uL (0-0.5); Absolute Eosinophils 0.2 K/uL (0-0.5); Absolute Lymphocytes (CBC) 1.4 K/uL (0.7-4.9); Absolute Neutrophil 4.3 K/uL (1.8-8.0); Eosinophils % 3.5 % (0-4.4); Hematocrit 36.6 % (39.6-49.0); Hemoglobin 12.5 g/dL (13.6-17.9); Lymphocytes % 19.9 % (15.3-44.8); MCH 30.5 pg (27.0-35.0); MCHC 34.2 g/dL (32.0-36.0); MCV 89.1 fL (80-100); MPV 7.2 fL (7.6-11.3); Monocytes % 14.5 % (3.3-12.3); Neutrophils % 61.1 % (41.7-73.7); Nucleated Red Blood Cells % 0.3 % (0-0); Platelets 461 thou/uL (152-406); RBC Red Blood Cell Count 4.11 M/uL (4.33-5.43); Red Cell Distribution Width 13.1 % (12.1-15.2)
[2024-06-21 07:04] LABS: Differential Total Cells Count 100
[2024-06-21 07:05] LABS: Atypical Lymphocytes 1 %; Band Neutrophils 2 % (0-1); Blood Morphology Comment NOT SEEN (NOT SEEN); Eosinophils 2 % (0-3); Lymphocytes 11 % (15-42); Monocytes 15 % (0-10); Platelet Estimate ADEQ; Segmented Neutrophils 68 % (40-80)
[2024-06-21] MEDS: NA CHLORIDE 0.9% 500 ML ONE (07:45)
[2024-06-21] MEDS ORDERED: propofoL 200 MG/20 ML VIAL IV ONE (08:05)
[2024-06-21] MEDS ORDERED: LIDOCAINE 1% MPF 5 ML VIAL ONE (08:05)
--- NOTE | 2024-06-21 09:13 | P.PN ---
Subjective Date of Service: 06/21/24 Chief Complaint: Pneumonia, hyponatremia, atrial fibrillation Subjective: No new changes, No C/O voiced, Tolerating diet, Ambulating, Improving Review of Systems 10-point ROS is otherwise unremarkable Physical Examination - Vital Signs Temperature: 98.1 F Blood Pressure: 107/68 Pulse: 63 Respirations: 15 Pulse Ox (%): 96 - Physical Exam General: Alert, In no apparent distress HEENT: Atraumatic, PERRLA, EOMI Neck: Supple, JVD not distended Respiratory: Clear to auscultation bilaterally, Normal air movement Cardiovascular: Regular rate/rhythm, Normal S1 S2 Gastrointestinal: Normal bowel sounds, No tenderness Musculoskeletal: No tenderness Integumentary: No rashes Neurological: Normal speech, Normal tone, Normal affect Lymphatics: No axilla or inguinal lymphadenopathy - Studies Medications List Reviewed: Yes Assessment And Plan - Current Problems (Diagnosis) (1) Diastolic heart failure Current Visit: Yes Status: Acute Plan: lopressor 50 mg po BID add Losartan 25 mg daily add aldactone 25 mg daily stop Bumex Outpatient follow up with cardiology. (2) HTN (hypertension) Current Visit: Yes Status: Acute Plan: as above. (3) Atrial fibrillation Current Visit: Yes Status: Acute Plan: Patient is s/p KELLEN DCCV, Back in sinus rhythm echo shows moderate dilated LA, so not sure if this new onset or not, Sotalol 80 mg po BID (EKG after 3rd dose) Lower lopressor to 50 mg po BID continue Eliquis 5 mg po BID Outpatient follow up with cardiology.
[2024-06-21 09:36] VITALS: TEMP 97.8
--- NOTE | 2024-06-21 10:15 | ECHO ---
HEIGHT: 6 ft 1 in WEIGHT: 258 lb 0 oz DATE OF STUDY: 06/21/[address]: Shane Hdez MD 2-DIMENSIONAL: YES M.MODE: DOPPLER: COLOR FLOW: YES TDS: PORTABLE: YES DEFINITY: BUBBLE STUDY: DIAGNOSIS: ATRIAL FIBRILLATION CARDIAC HISTORY: CATHERIZATION: SURGERY: PROSTHETIC VALVE: PACEMAKER: MEASUREMENTS (cm) DIASTOLIC (NORMALS) SYSTOLIC (NORMALS) IVSd (0.6-1.2) LA Diam (1.9-4.0) LVEF % LVIDd (3.5-5.7) LVIDs (2.0-3.5) %FS % LVPWd (0.6-1.2) Ao Diam (2.0-3.7) 2 DIMENSIONAL ASSESSMENT: RIGHT ATRIUM: LEFT ATRIUM: RIGHT VENTRICLE: LEFT VENTRICLE: TRICUSPID VALVE: MITRAL VALVE: PULMONIC VALVE: AORTIC VALVE: PERICARDIAL EFFUSION: AORTIC ROOT: LEFT VENTRICULAR WALL MOTION: DOPPLER/COLOR FLOW: COMMENTS: 1. NORMAL LEFT ATRIAL APPENDAGE, NO CLOT TECHNOLOGIST: CRISTELA BALTAZAR
--- NOTE | 2024-06-21 10:36 | P.PN ---
Date of Service: 06/21/24 Vital Signs Temp Pulse Resp BP Pulse Ox 97.8 F 62 16 117/70 96 06/21/24 09:27 06/21/24 09:27 06/21/24 09:27 06/21/24 09:27 06/21/24 09:13 Medications Acetaminophen (Acetaminophen 500 Mg Tab) 500 mg PO Q4HP PRN PRN Reason: Pain scale 2-4 (Mild) Apixaban (Apixaban 5 Mg Tablet) 5 mg PO BID [facility] Last Admin: 06/21/24 08:18 Dose: Not Given Bumetanide (Bumetanide 1 Mg Tablet) 1 mg PO DAILY [facility] Bumetanide (Bumetanide 1 Mg Tablet) 0.5 mg PO 1X ONE Stop: 06/21/24 11:31 Ergocalciferol (Drisdol (Vitamin D=Ergocalciferol) 51697 Unit Cap) 50,000 unit PO DAILY [facility] Stop: 06/22/24 09:01 Folic Acid (Folic Acid 1 Mg Tablet) 1 mg PO DAILY [facility] Last Admin: 06/21/24 08:18 Dose: Not Given Levofloxacin (Levofloxacin 750 Mg Tab) 750 mg PO DAILY [facility]; Protocol Stop: 06/21/24 23:59 Last Admin: 06/21/24 08:18 Dose: Not Given Loperamide HCl (Loperamide Hcl 2 Mg Capsule) 2 mg PO Q4H PRN PRN Reason: DIARRHEA Last Admin: 06/20/24 09:44 Dose: 2 mg Metoprolol Tartrate (Metoprolol Tar 50 Mg Tab) 50 mg PO TID [facility] Last Admin: 06/21/24 08:19 Dose: Not Given Ondansetron HCl (Ondansetron 4 Mg/2 Ml Vial) 4 mg IV Q6HP PRN PRN Reason: NAUSEA / VOMITING Polyethylene Glycol (Polyethyl Gly 3350 17 Gm/Dose) 17 gm PO DAILY PRN PRN Reason: CONSTIPATION Potassium Chloride (Potassium Cl Sa 10 Meq Tab) 40 meq PO 1X ONE Stop: 06/21/24 10:27 Sotalol HCl (Sotalol Hcl 80 Mg Tab) 80 mg PO BID 6AM 6PM [facility] Last Admin: 06/21/24 06:43 Dose: 80 mg Spironolactone (Spironolactone 25 Mg Tablet) 25 mg PO DAILY [facility] Thiamine HCl (Thiamine Hcl 100 Mg Tablet) 100 mg PO DAILY [facility] Last Admin: 06/21/24 08:19 Dose: Not Given Zolpidem Tartrate (Zolpidem Tartrate 5 Mg Tablet) 5 mg PO BEDTIME PRN PRN PRN Reason: INSOMNIA Microbiology Results 06/17/24 14:07 Blood - Blood Aerobic Blood Culture - Preliminary No growth in 24 hours. 06/17/24 14:07 Blood - Blood Anaerobic Blood Culture - Preliminary No growth in 24 hours. 06/17/24 13:20 Blood - Blood Aerobic Blood Culture - Preliminary No growth in 24 hours. 06/17/24 13:20 Blood - Blood Anaerobic Blood Culture - Preliminary No growth in 24 hours. Assessment/ Plan: Nephrology No dyspnea No chest pain Reports persistent LE Edema No acute events overnight Vitals, medications, blood work and imaging reviewed in the chart General: In no apparent distress, Oriented x3, Cooperative Neck: Supple Respiratory: Clear to auscultation bilaterally Cardiovascular: Edema, Irregular heart rate/rhythm Gastrointestinal: Soft and benign, Non-distended Musculoskeletal: No clubbing, No contractures Integumentary: No rashes Neurological: Normal speech Laboratory Data (last 24 hrs) 06/17/24 06/17/24 06/17/24 16:29 13:20 13:20 WBC Hgb Hct Plt Count PT 13.3 H INR 1.18 APTT 26.9 Sodium Cancelled 119 L* Potassium Cancelled 3.6 BUN Cancelled 20 H Creatinine Cancelled 0.84 Glucose Cancelled 116 H Total Bilirubin 0.8 AST 38 H ALT 55 Alkaline Phosphatase 83 06/17/24 13:20 WBC 12.00 H Hgb 12.6 L Hct 35.3 L Plt Count 345 PT INR APTT Sodium Potassium BUN Creatinine Glucose Total Bilirubin AST ALT Alkaline Phosphatase Imagings Data: EXAM: Chest Single View HISTORY: 69 years Male Dyspnea;Palpitations COMPARISON: None. FINDINGS: LUNGS/PLEURA: The lungs are clear. No pleural effusions or pneumothorax. No pulmonary edema. CARDIAC/MEDIASTINUM: The cardiac silhouette is within normal limits. UPPER ABDOMEN: No significant abnormality. BONES: No acute abnormality. LINES/TUBES/OTHER: N/A IMPRESSION: No evidence of acute cardiopulmonary disease. Conclusions/Impression: Hyponatremia in the setting of HCTZ -Hold HCTZ -Continue Bumex Hypokalemia -Replete as needed -Start Spironolactone Daily HTN Afib -Continue Metoprolol -Cardiology following LE Edema -Continue Bumex 0.5mg daily -Start Spironolactone 25mg daily Hypoalbuminemia -Encourage nutrition/ protein supplementation Anemia in chronic illness -Monitor H&H Hospitalist and Cardiology notes reviewed
[2024-06-21] MEDS ORDERED: POTASSIUM CL SA 10 MEQ TAB PO ONE (10:45)
[2024-06-21] MEDS ORDERED: BUMETANIDE 1 MG TABLET PO ONE (11:30)
[2024-06-21] MEDS: DRISDOL (VITAMIN D=ERGOCALCIFEROL) 50000 UNIT CAP PO SCH (12:04)
[2024-06-21 12:06] VITALS: O2SAT 100
--- NOTE | 2024-06-21 12:17 | EKG ---
Test Date: 2024-06-17 Test Time: 12:55:15 Hosiery Bagger: ALP MEASUREMENT RESULTS: Intervals: Rate: 119 NE: QRSD: 110 QT: 324 QTc: 455 [place]: P: NE: QRS: 74 T: 48 INTERPRETIVE STATEMENTS: Atrial fibrillation with rapid ventricular response Abnormal ECG No previous ECG available for comparison Electronically Signed On 06-21-24 12:09:15 HUMAN RESOURCES TEMP by Shane Hdez
[2024-06-21 12:18] VITALS: BP 134/85
--- NOTE | 2024-06-21 21:49 | OP ---
Date of Procedure: 06/21/2024 Surgeon: Shane Hdez Procedure Performed: Synchronized transesophageal echocardiogram cardioversion. Indication For Procedure: Atrial fibrillation. Complications: None. Estimated Blood Loss: None. Sedation: Done by anesthesia team. Description Of Procedure: After risks, benefits, and alternatives were explained to the patient, pat ient agreed to proceed with procedure and signed informed consent. The patient was brought back to he OR. Time-out was performed. Sedation was administered by anesthesia team. KELLEN probe inserted. Images were obtained and after KELLEN probe removal, synchronized cardioversion was done with 200 joules . The patient converted back into sinus rhythm. The patient was moved back to Recovery in stable co ndition. Assessment And Plan: Atrial fibrillation, status post synchronized transesophageal echocardiogram ca rdioversion. Plan: 1. Continue Eliquis 5 mg p.o. b.i.d. 2. Continue sotalol 80 mg p.o. b.i.d. 3. Outpatient followup with Cardiology. MICHELLE Voice ID: [id number] Report ID: [id number]
[2024-06-22] MEDS ORDERED: SPIRONOLACTONE 25 MG TABLET PO SCH (09:00)
[2024-06-22] MEDS ORDERED: BUMETANIDE 1 MG TABLET PO SCH ×2 (09:00)
--- NOTE | 2024-06-22 12:13 | EKG ---
Test Date: 2024-06-21 Test Time: 12:36:51 Ordnance Truck Installation Supervisor: PHILL MEASUREMENT RESULTS: Intervals: Rate: 69 VT: 156 QRSD: 108 QT: 426 QTc: 456 [place]: P: 55 VT: 156 QRS: 40 T: 44 INTERPRETIVE STATEMENTS: Normal sinus rhythm Normal ECG Compared to ECG 06/21/2024 10:06:11 Myocardial infarct finding no longer present Electronically Signed On 06-22-24 12:11:07 PAPER SHEETER by Shane Hdez
--- NOTE | 2024-06-22 12:15 | EKG ---
Test Date: 2024-06-21 Test Time: 10:06:11 Sliver Lap Machine Tender: MONI MEASUREMENT RESULTS: Intervals: Rate: 64 [place]: 184 QRSD: 92 QT: 418 QTc: 431 [place]: P: 53 [place]: 184 QRS: 51 T: 51 INTERPRETIVE STATEMENTS: Normal sinus rhythm Septal infarct, age undetermined Abnormal ECG Compared to ECG 06/19/2024 03:59:48 Myocardial infarct finding now present Atrial fibrillation no longer present ST (T wave) deviation no longer present Electronically Signed On 06-22-24 12:11:29 THERAPIST OCCUPATIONAL by Shane Hdez
--- NOTE | 2024-06-22 12:16 | EKG ---
Test Date: 2024-06-19 Test Time: 03:59:48 Dry Cell Assembly Machine Tender: PEDRITO MEASUREMENT RESULTS: Intervals: Rate: 112 [place]: QRSD: 102 QT: 332 QTc: 453 [place]: P: [place]: QRS: 35 T: -3 INTERPRETIVE STATEMENTS: Atrial fibrillation with rapid ventricular response Nonspecific ST and T wave abnormality, probably digitalis effect Abnormal ECG Compared to ECG 06/17/2024 12:55:15 ST (T wave) deviation now present Electronically Signed On 06-22-24 12:11:48 ICING COATER by Shane Hdez
== END 2024-06-21 13:00 | disposition home or self-care (01) | DRG 193 ==
LOC: ER 12:37 → ERHOLD 16:39 → 2ND 06-18 14:44
PROVIDERS: ADMIT Hospitalist; ATTEND Hospitalist
PROC: 5A2204Z Restoration of Cardiac Rhythm, Single (ICD-10-PCS; principal; 2024-06-21)
PROC: B24BZZ4 Ultrasonography of Heart with Aorta, Transesophageal (ICD-10-PCS; 2024-06-21)
DX: J18.9 Pneumonia, unspecified organism (principal); I50.31 Acute diastolic (congestive) heart failure; I48.19 Other persistent atrial fibrillation; E87.1 Hypo-osmolality and hyponatremia; I11.0 Hypertensive heart disease with heart failure; D64.9 Anemia, unspecified; E88.09 Other disorders of plasma-protein metabolism, not elsewhere classified; D63.8 Anemia in other chronic diseases classified elsewhere; Z88.0 Allergy status to penicillin
CPT/HCPCS: 36415; 71045; 80048; 80053; 81003; 82533; 83605; 83735; 83880; 83930; 83935; 84100; 84300; 84443; 84484; 84550; 85025; 85610; 85730; 87040; 87324; 92960; 93005; 93306; 93312; 96372; 99285; J1650; J2003; J2704; J3475; J7040; J7050